=== PATIENT | male | born 1995 | race Caucasian/White ===

== ENCOUNTER 2018-06-24 21:21 | Emergency (ER) | payer SELFPAY ==
[2018-06-24] MEDS ORDERED: Bacitracin Oint 1 GM U/D Packet TOP ONE (21:35)
--- NOTE | 2018-06-24 21:42 | EDM.PDOC ---
ED HPI GENERAL MEDICAL PROBLEM - General Chief Complaint: Skin Complaint Stated Complaint: INFECTION ON FINGER ON RT HAND Time Seen by Provider: 06/24/18 21:23 Source of Information: Reports: Patient History Limitations: Reports: No Limitations - History of Present Illness INITIAL COMMENTS - FREE TEXT/NARRATIVE: HISTORY AND PHYSICAL: History of present illness: Patient is a 23-year-old male presents to the ED today with concern of an infection on his left thumb. Patient states over the past month he has noticed continually grow. Patient has a last few days he has noticed it has become increasingly more painful. Patient denies taking anything for her symptoms and states he has never had something like this occur before. Patient denies any injury or trauma to the hand and denies any other symptoms at this time. Patient states he is up-to-date on his vaccinations. Patient denies fever, chills, chest pain, shortness of breath, or cough. Denies headache, neck stiff ness, change in vision, syncope, or near syncope. Denies nausea, vomiting, abdominal pain, diarrhea, constipation, or dysuria. Has not noted any blood in urine or stool. Patient has been eating and drinking appropriately. Review of systems: As per history of present illness and below otherwise all systems reviewed and negative. Past medical history: As per history of present illness and as reviewed below otherwise noncontributory. Surgical history: As per history of present illness and as reviewed below otherwise noncontributory. Social history: See social history for further information Family history: As per history of present illness and as reviewed below otherwise noncontributory. Physical exam: General: Patient is alert, oriented, and in no acute distress. Patient sitting comfortably on exam table. HEENT: Atraumatic, normocephalic, pupils equal and reactive bilaterally, negative for conjunctival pallor or scleral icterus, mucous membranes moist, TMs normal bilaterally, throat clear, neck supple, nontender, trachea midline. No drooling or trismus noted. No meningeal signs. No hot potato voice noted. Lungs: Clear to auscultation, breath sounds equal bilaterally, chest nontender. Heart: S1S2, regular rate and rhythm without overt murmur Abdomen: Soft, nondistended, nontender. Negative for masses or hepatosplenomegaly. Negative for costovertebral tenderness. Pelvis: Stable nontender. Genitourinary: Deferred. Rectal: Deferred. Skin: Intact, warm, dry. No lesions or rashes noted. Extremities: Atraumatic, negative for cords or calf pain. Neurovascular unremarkable. Patient has full range of motion of the left digits wrist elbow and shoulder. Radial pulses grossly intact with capillary refill less than 2 seconds. There is a 2 mm furuncle with surrounding erythema of approximately 2 cm on the lower aspect of the left thumb. Neuro: Awake, alert, oriented. Cranial nerves II through XII unremarkable. Cerebellum unremarkable. Motor and sensory unremarkable throughout. Exam nonfocal. Notes: Area sterilized using chlorhexidine prior to numbing the area with lidocaine 1% . Usual and customary procedures were used for drainage of the furuncle. Patient tolerated procedure well with minimal blood loss. Bacitracin and sterile dressing applied to the area. There was a small amount of pus drainage from the area that was unable to be cultured. Discussion importance for follow-up with primary care provider. Voices understanding and is agreeable to plan of care. Denies any further questions or concerns at this time. Diagnostics: hand XR Therapeutics: bacitracin, drainage of furuncle, lidocaine Prescription: Bactrim DS Impression: Furuncle thumb, left Plan: 1. Take medication as prescribed. You can alternate ibuprofen and Tylenol as directed for pain and discomfort. 2. Follow-up with her primary care provider as discussed. Return to ED as needed and as discussed. Definitive disposition and diagnosis as appropriate pending reevaluation and review of above. left hand Pain Score (Numeric/FACES): 7 - Related Data Allergies Allergy/AdvReac Type Severity Reaction Status Date / Time No Known Allergies Allergy Verified 06/24/18 21:28 Home Meds: Home Meds . [No Known Home Meds] 06/24/18 [History] Past Medical History - Past Surgical History GI Surgical History: Reports: Appendectomy Social & Family History - Family History Family Medical History: Noncontributory - Tobacco Use Smoking Status *Q: Current Every Day Smoker Years of Tobacco use: 5 Packs/Tins Daily: 1 - Caffeine Use Caffeine Use: Reports: Coffee - Recreational Drug Use Recreational Drug Use: No ED ROS GENERAL - Review of Systems Review Of Systems: ROS reveals no pertinent complaints other than HPI. ED EXAM, SKIN/RASH Exam: See Below (See dictation) Course - Vital Signs Last Recorded V/S: Last Vital Signs Temp 36.3 C 06/24/18 21:21 Pulse 98 06/24/18 21:21 Resp 18 06/24/18 21:21 BP 169/89 H 06/24/18 21:21 Pulse Ox 96 06/24/18 21:21 - Orders/Labs/Meds Orders: Active Orders 24 hr Category Date Time Status Communication Order [RC] STAT Care 06/24/18 21:36 Active Hand Comp Min 3V Lt [CR] Stat Exams 06/24/18 21:28 Taken Meds: Medications Discontinued Medications Generic Name Dose Route Start Last Admin Trade Name Karolina PRN Reason Stop Dose Admin Bacitracin 1 dose 06/24/18 21:35 06/24/18 22:09 Bacitracin Oint 1 Gm TOP 06/24/18 21:36 1 dose ONETIME ONE Administration Lidocaine HCl Confirm 06/24/18 21:29 06/24/18 21:35 Xylocaine-Mpf 1% Administered 06/24/18 21:30 Not Given Dose 5 mls @ as directed .ROUTE .STK-MED ONE Lidocaine HCl 5 ml 06/24/18 21:28 06/24/18 21:35 Xylocaine-Mpf 1% INJECT 06/24/18 21:29 5 ml ONETIME ONE Administration Departure - Departure Time of Disposition: 22:20 Disposition: Home, Self-Care 01 Clinical Impression: Furuncle left hand - Discharge Information Referrals: PCP,None [Primary Care Provider] - Forms: ED Department Discharge Additional Instructions: The following information is given to patients seen in the emergency department who are being discharged to home. This information is to outline your options for follow-up care. We provide all patients seen in our emergency department with a follow-up referral. The need for follow-up, as well as the timing and circumstances, are variable depending upon the specifics of your emergency department visit. If you don't have a primary care physician on staff, we will provide you with a referral. We always advise you to contact your personal physician following an emergency department visit to inform them of the circumstance of the visit and for follow-up with them and/or the need for any referrals to a consulting specialist. The emergency department will also refer you to a specialist when appropriate. This referral assures that you have the opportunity for follow-up care with a specialist. All of these measure are taken in an effort to provide you with optimal care, which includes your follow-up. Under all circumstances we always encourage you to contact your private physician who remains a resource for coordinating your care. When calling for follow-up care, please make the office aware that this follow-up is from your recent emergency room visit. If for any reason you are refused follow-up, please contact the [facility] Emergency Department at and asked to speak to the emergency department charge nurse. [facility] [address] [place] [id number] [facility] [address] [place] [id number] 1. Take medication as prescribed. You can alternate ibuprofen and Tylenol as directed for pain and discomfort. 2. Follow-up with your primary care provider as discussed. Return to ED as needed and as discussed. - My Orders Last 24 Hours: My Active Orders 06/24/18 21:28 Hand Comp Min 3V Lt [CR] Stat 06/24/18 21:36 Communication Order [RC] STAT - Assessment/Plan Last 24 Hours: My Active Orders 06/24/18 21:28 Hand Comp Min 3V Lt [CR] Stat 06/24/18 21:36 Communication Order [RC] STAT
--- NOTE | 2018-06-24 22:27 | CR ---
HISTORY: Left hand injury. TECHNIQUE: Three views of the left hand. COMPARISON: No prior. FINDINGS: No acute fracture or malalignment. Joint spaces are maintained. No radiopaque foreign body or soft tissue gas. IMPRESSION: No acute fracture or malalignment. Dictated by Lucian Gil MD @ 06/24/2018 10:25:19 PM Dictated by: Lucian Gil MD @ 06/24/2018 22:25:24 (Electronically Signed)
== END 2018-06-24 22:35 | disposition home or self-care (01) ==
LOC: MW.ED 21:21
DX: L02.522 Furuncle left hand (principal); F17.210 Nicotine dependence, cigarettes, uncomplicated
CPT/HCPCS: 10060; 73130; 99283; J2001

== ENCOUNTER 2018-08-14 12:55 | Emergency (ER) | payer SELFPAY ==
--- NOTE | 2018-08-14 13:05 | EDM.PDOC ---
ED HPI GENERAL MEDICAL PROBLEM - General Chief Complaint: Upper Extremity Injury/Pain Stated Complaint: LEFT BUMP Time Seen by Provider: 08/14/18 12:56 Source of Information: Reports: Patient History Limitations: Reports: No Limitations - History of Present Illness INITIAL COMMENTS - FREE TEXT/NARRATIVE: HISTORY AND PHYSICAL: History of present illness: Patient is a 23-year-old male presents to the ED today with concern of a nodule on his left thumb. Patient has been dealing with what he believed was a wart of the thumb. Patient states he has been removing the wart using [id number] medication and over the past 2 weeks has noticed an odd growths from his thumb. He states that the growth is painful to palpation and also he has slightly tried to remove it and it has bled. Patient denies any trauma to the hand. Patient denies any other symptoms at this time. Patient denies fever, chills, chest pain, shortness of breath, or cough. Denies headache, neck stiff ness, change in vision, syncope, or near syncope. Denies nausea, vomiting, abdominal pain, diarrhea, constipation, or dysuria. Has not noted any blood in urine or stool. Patient has been eating and drinking appropriately. Review of systems: As per history of present illness and below otherwise all systems reviewed and negative. Past medical history: As per history of present illness and as reviewed below otherwise noncontributory. Surgical history: As per history of present illness and as reviewed below otherwise noncontributory. Social history: See social history for further information Family history: As per history of present illness and as reviewed below otherwise noncontributory. Physical exam: General: Patient is alert, oriented, and in no acute distress. Patient sitting comfortably on exam table. HEENT: Atraumatic, normocephalic, pupils equal and reactive bilaterally, negative for conjunctival pallor or scleral icterus, mucous membranes moist, TMs normal bilaterally, throat clear, neck supple, nontender, trachea midline. No drooling or trismus noted. No meningeal signs. No hot potato voice noted. Lungs: Clear to auscultation, breath sounds equal bilaterally, chest nontender. Heart: S1S2, regular rate and rhythm without overt murmur Abdomen: Soft, nondistended, nontender. Negative for masses or hepatosplenomegaly. Negative for costovertebral tenderness. Pelvis: Stable nontender. Genitourinary: Deferred. Rectal: Deferred. Skin: Intact, warm, dry. No lesions or rashes noted. Extremities: Atraumatic, negative for cords or calf pain. Neurovascular unremarkable. There is a 1cm oval, red nodule of the left thumb. Neuro: Awake, alert, oriented. Cranial nerves II through XII unremarkable. Cerebellum unremarkable. Motor and sensory unremarkable throughout. Exam nonfocal. Notes: Dr. Palmer directly involved in patient care. I did see the patient when he initially came to the ED for the concern of the wart. At that time, the appearance on the hand resembled a wart, with toughened / grainy appearance in the skin that patient had been manipulating at home and appeared to have the beginnings of a secondary infection with surrounding erythema of the area. Today, there is a more evident external nodule that was not present when I had seen his hand prior, today the nodule is red in appearance. Discussed the importance to follow-up with Gen. surgery in order to have this properly removed and sent for biopsy evaluation. Placed on referral list and instructed to call today for appointment. Voices understanding and is agreeable to plan of care. Denies any further questions or concerns at this time. Diagnostics: None Therapeutics: None Prescription: None Impression: Thumb nodule, unspecified Plan: 1. You can alternate ibuprofen and Tylenol as directed for pain and discomfort. 2. Follow-up with Gen. surgery as discussed. The number has been provided to you above. Call and make an appointment with them for removal. 3. Return to the ED as needed and as discussed. Definitive disposition and diagnosis as appropriate pending reevaluation and review of above. - Related Data Allergies Allergy/AdvReac Type Severity Reaction Status Date / Time No Known Allergies Allergy Verified 08/14/18 13:09 Home Meds: Home Meds . [No Known Home Meds] 06/24/18 [History] Past Medical History - Past Surgical History GI Surgical History: Reports: Appendectomy Social & Family History - Family History Family Medical History: Noncontributory - Caffeine Use Caffeine Use: Reports: Coffee Review of Systems - Review of Systems Review Of Systems: ROS reveals no pertinent complaints other than HPI. ED EXAM, GENERAL - Physical Exam Exam: See Below (See dictation) Course - Vital Signs Last Recorded V/S: Last Vital Signs Temp 36.4 C 08/14/18 12:55 Pulse 73 08/14/18 12:55 Resp 18 08/14/18 12:55 BP 126/77 08/14/18 12:55 Pulse Ox 96 08/14/18 12:55 Departure - Departure Time of Disposition: 13:15 Disposition: Home, Self-Care 01 Clinical Impression: Nodule of skin of left thumb - Discharge Information Instructions: Excision of Skin Lesions, Care After Forms: ED Department Discharge Additional Instructions: The following information is given to patients seen in the emergency department who are being discharged to home. This information is to outline your options for follow-up care. We provide all patients seen in our emergency department with a follow-up referral. The need for follow-up, as well as the timing and circumstances, are variable depending upon the specifics of your emergency department visit. If you don't have a primary care physician on staff, we will provide you with a referral. We always advise you to contact your personal physician following an emergency department visit to inform them of the circumstance of the visit and for follow-up with them and/or the need for any referrals to a consulting specialist. The emergency department will also refer you to a specialist when appropriate. This referral assures that you have the opportunity for follow-up care with a specialist. All of these measure are taken in an effort to provide you with optimal care, which includes your follow-up. Under all circumstances we always encourage you to contact your private physician who remains a resource for coordinating your care. When calling for follow-up care, please make the office aware that this follow-up is from your recent emergency room visit. If for any reason you are refused follow-up, please contact the [facility] Emergency Department at and asked to speak to the emergency department charge nurse. [facility] Primary [facility] [address] [place] [address] [facility] [address] [place] [id number] [facility] Professional Building [address] [place] [address], [address] [place] [address] 1. You can alternate ibuprofen and Tylenol as directed for pain and discomfort. 2. Follow-up with Gen. surgery as discussed. The number has been provided to you above. Call and make an appointment with them for removal. 3. Return to the ED as needed and as discussed.
== END 2018-08-14 13:32 | disposition home or self-care (01) ==
LOC: MW.ED 12:55
DX: R22.32 Localized swelling, mass and lump, left upper limb (principal)
CPT/HCPCS: 99283